=== PATIENT | female | born 1980 | race Caucasian/White ===

== ENCOUNTER 2023-01-03 13:20 | Emergency (ER) | payer BC, SELFPAY ==
[2023-01-03] VITALS (14 sets, daily range): BP systolic 146–164; BP diastolic 98–112; PULSE 65–94; RESP 11–22; TEMP 36.7; O2SAT 97–100; BMI 26.5
--- NOTE | 2023-01-03 14:13 | CT_ITS ---
The [address] [address] Patient Name: TAAMRA CARRASQUILLO MRN: [id number] date: 1980 Sex: F Assigned Patient Location: ER Current Patient Location: ER Accession/Order Number: [id number] Exam Date: 01/03/2023 15:05 Report Date: 01/03/2023 15:29 At the request of: PIETRO KAPLAN Procedure: CT head/brain wo con EXAMINATION: CT head/brain wo con HISTORY: Headache , hypertension COMPARISON: No relevant comparison available. TECHNIQUE: Axial CT images were obtained without IV contrast. Dose reduction techniques were achieved by using automated exposure control and/or adjustment of mA and/or kV according to patient size and/or use of iterative reconstruction technique. FINDINGS: BRAIN: No edema, hemorrhage, mass, acute infarction, or inappropriate atrophy. CSF SPACES: No hydrocephalus, subarachnoid hemorrhage, or mass. Appropriate for age. SKULL: No fracture, mass, or other significant visible lesion. SINUSES: No significant mucosal thickening or fluid on the limited views. ORBITS: No appreciable abnormality on the limited views. OTHER: Negative CT/CT head/brain wo con IMPRESSION: 1. Normal CT appearance of the brain. Electronically authenticated by: MILLER SOLORZANO Date: 01/03/2023 15:29
--- NOTE | 2023-01-03 14:13 | ECG_ITS ---
The [facility] Test Date: 2023-01-03 Pat Name: TAMARA CARRASQUILLO Department: Room: - Gender: Female [employer]inter: : 1980 Requested By: WIL YOST Order Number: [id number] Reading MD: AMERICA ALEXANDRE Measurements Intervals [place] Rate: 73 P: 33 [place]: 146 QRS: 81 QRSD: 90 T: 22 QT: 376 QTc: 401 Interpretive Statements 1100 Sinus rhythm 9110 normal ECG No previous ECG available for comparison Electronically Signed On 01-04-2023 5:19:49 EDT by AMERICA ALEXANDRE
--- NOTE | 2023-01-03 14:20 | ED_ITS ---
Documented by User: EMANUEL Callejas 01/03/23 15:48 HPI - General Adult General Chief complaint: Headache Stated complaint: HIGH BLOOD PRESSURE/R HAND TINGLING Time Seen by Provider: 01/03/23 13:42 Source: patient Mode of arrival: walk-in Limitations: no limitations History of Present Illness HPI narrative: patient is a 42-year-old female who presents to the emergency department for the evaluation of elevated blood pressure, medication refill, headache and right hand tingling. Patient states she has been out of her blood pressure medication and went to the [facility] emergency department over the weekend because she has been having headache, right hand tingling for the last week. She states they did not do any testing but increased her dose of lisinopril and sent her home. She presents to the Emergency Room today because she is concerned something else may be wrong and they did not do any testing. She has been on lisinopril for approximately one year. She states she has a global headache, no visual changes or chest pain. She denies any injury to the neck or back. She has no pain to the neck or back. She does not have an appointment with her PCP for another week so she came to the emergency department. She denies a possibility of . Related Data Home Medications Medication Instructions Recorded Confirmed lisinopril 5 mg tablet 5 mg PO DAILY 01/03/23 01/03/23 Allergies Allergy/AdvReac Type Severity Reaction Status Date / Time nitrofurantoin Allergy Severe Verified 01/03/23 13:28 [From Macrobid] sulfamethoxazole Allergy Severe throat Verified 01/03/23 13:28 [From Bactrim] swelling trimethoprim [From Bactrim] Allergy Severe throat Verified 01/03/23 13:28 swelling Review of Systems ROS Constitutional Denies: fever or chills Ears, nose, mouth, and throat Denies: throat pain Cardiovascular Denies: chest pain Respiratory Denies: shortness of breath Gastrointestinal Denies: nausea or vomiting Musculoskeletal Denies: back pain or neck pain Integumentary/Breast Denies: rash Neurological Reports: headache and numbness in extremities Hematologic/Lymphatic Denies: easy bruising Allergic/Immunologic Denies: hives PFSH PFSH Social History Smoking status: Heavy tobacco smoker Exam Narrative Exam Narrative: Gen.: Awake, alert, in no distress Head: Normocephalic, atraumatic ENT: Moist mucous membranes, no nuchal rigidity Respiratory: No respiratory distress, lungs clear bilaterally Cardio: Regular rate and rhythm Gastrointestinal: Abdomen is soft, nondistended and nontender to palpation Extremities: Moves extremities equally, no injuries noted Psych: Normal mood and affect Neuro: No focal neuro deficit Skin: Warm, dry, intact Constitutional Vital Signs, click to edit/add: Last Vital Signs Temp 98.1 F 01/03/23 13:28 Pulse 66 01/03/23 15:40 Resp 15 01/03/23 15:40 BP 155/104 H 01/03/23 15:31 Pulse Ox 99 01/03/23 15:40 O2 Del Method Room Air 01/03/23 13:28 Course Vital Signs Vital signs: Vital Signs Temperature 98.1 F 01/03/23 13:28 Pulse Rate 94 H 01/03/23 13:28 Respiratory Rate 16 01/03/23 13:28 Blood Pressure 158/98 H 01/03/23 13:28 Pulse Oximetry 98 01/03/23 13:28 Oxygen Delivery Method Room Air 01/03/23 13:28 Temperature 98.1 F 01/03/23 13:28 Pulse Rate 66 01/03/23 15:40 Respiratory Rate 15 01/03/23 15:40 Blood Pressure 155/104 H 01/03/23 15:31 Pulse Oximetry 99 01/03/23 15:40 Oxygen Delivery Method Room Air 01/03/23 13:28 Medical Decision Making MDM Narrative Medical decision making narrative: patient was treated with Toradol and Decadron for headache, CT of the brain, lab studies within normal limits and she is discharged home to continue her blood pressure medication. Follow-up with PCP as an outpatient. Blood pressure is controlled in the emergency department. She has no focal neuro deficit in the Emergency Room. She appears well-hydrated and nontoxic, return to the Emergency Room if symptoms change or worsen. Medical Records Medical records reviewed: Yes I reviewed the patient's medical records Lab Data Lab results reviewed: Yes I reviewed the patient's lab results Labs: Lab Results 01/03/23 Range/Units 14:33 WBC 9.1 (4.0-11.0) 10^3/uL RBC 4.94 (4.20-5.40) 10^6/uL Hgb 15.1 (12.0-16.0) g/dL Hct 44.8 (36.0-48.0) % MCV 90.7 (81.0-99.0) fL MCH 30.6 (26.7-34.0) pg MCHC 33.7 (29.9-35.2) g/dL RDW 13.4 (11.0-15.0) % Plt Count 212 (150-450) 10^3/uL MPV 10.7 (9.5-13.5) fL Neut % (Auto) 62.6 (43.0-75.0) % Lymph % (Auto) 25.7 (20.5-60.0) % [place] % (Auto) 5.5 (1.7-12.0) % Eos % (Auto) 5.5 (0.9-7.0) % Baso % (Auto) 0.4 (0.2-2.0) % Neut # (Auto) 5.7 (1.4-6.5) 10^3/uL Lymph # (Auto) 2.3 (1.2-3.8) 10^3/uL [place] # (Auto) 0.5 (0.3-0.8) 10^3/uL Eos # (Auto) 0.5 (0.0-0.7) 10^3/uL Baso # (Auto) 0.0 (0.0-0.1) 10^3/uL Abs Immat Gran (auto) 0.03 (0.00-0.03) 10^3/uL Imm/Tot Granulo (auto) 0.3 (0.0-0.5) % PT 10.2 (9.0-11.6) sec INR 0.96 Sodium 138 (136-145) mmol/L Potassium 3.5 (3.5-5.1) mmol/L Chloride 104 (98-107) mmol/L Carbon Dioxide 29.7 (21.0-32.0) mmol/L Anion Gap 7.8 BUN 8.0 (7.0-18.0) mg/dL Creatinine 0.89 (0.55-1.02) mg/dL Est GFR ( Amer) >60 (>=60) Est GFR (Non-Af Amer) >60 (>=60) BUN/Creatinine Ratio 9.0 Glucose 108 H (74-106) mg/dL Calcium 8.8 (8.5-10.1) mg/dL Total Bilirubin 0.6 (0.2-1.0) mg/dL AST 18 (15-37) U/L ALT 26 (14-59) U/L Alkaline Phosphatase 62 (46-116) U/L Troponin I High Sens 4.4 (4.0-51.3) pg/mL Total Protein 7.1 (6.4-8.2) g/dL Albumin 3.8 (3.4-5.0) g/dL Globulin 3.3 g/dL Albumin/Globulin Ratio 1.2 TSH 1.857 (0.358-3.740) uIU/mL Imaging Data CT scan - head: Attestation: I have reviewed the pertinent imaging results. Radiologist's impression: Procedure: CT head/brain wo con EXAMINATION: CT head/brain wo con HISTORY: Headache , hypertension COMPARISON: No relevant comparison available. TECHNIQUE: Axial CT images were obtained without IV contrast. Dose reduction techniques were achieved by using automated exposure control and/or adjustment of mA and/or kV according to patient size and/or use of iterative reconstruction technique. FINDINGS: BRAIN: No edema, hemorrhage, mass, acute infarction, or inappropriate atrophy. CSF SPACES: No hydrocephalus, subarachnoid hemorrhage, or mass. Appropriate for age. SKULL: No fracture, mass, or other significant visible lesion. SINUSES: No significant mucosal thickening or fluid on the limited views. ORBITS: No appreciable abnormality on the limited views. OTHER: Negative IMPRESSION: 1. Normal CT appearance of the brain. Electronically authenticated by: MILLER SOLORZANO Date: 01/03/2023 15:29 ECG Data Attestation: I personally reviewed and interpreted this ECG as follows: (normal sinus rhythm at a rate of seventy-three, no acute ST elevation or ectopy. EKG reviewed by attending physician) Discharge Plan Discharge Chief Complaint: Headache Clinical Impression: Headache, Hypertension Patient Disposition: Home, Self-Care Time of Disposition Decision: 15:47 Condition: Good Prescriptions / Home Meds: No Action lisinopril 5 mg tablet 5 mg PO DAILY Instructions: Acute Headache (ED), Hypertension (ED) Stand Alone Forms: Portal Instructions Referrals: WIL YOST [Primary Care Provider] - 1 week Discharge Date/Time: 01/03/23 16:05 Documented by User: Robby Juarez MD 01/03/23 16:13 HPI - General Adult General Chief complaint: Headache Stated complaint: HIGH BLOOD PRESSURE/R HAND TINGLING Time Seen by Provider: 01/03/23 13:42 Related Data Home Medications Medication Instructions Recorded Confirmed lisinopril 5 mg tablet 5 mg PO DAILY 01/03/23 01/03/23 Allergies Allergy/AdvReac Type Severity Reaction Status Date / Time nitrofurantoin Allergy Severe Verified 01/03/23 13:28 [From Macrobid] sulfamethoxazole Allergy Severe throat Verified 01/03/23 13:28 [From Bactrim] swelling trimethoprim [From Bactrim] Allergy Severe throat Verified 01/03/23 13:28 swelling PFSH PFSH Social History Smoking status: Heavy tobacco smoker Exam Constitutional Vital Signs, click to edit/add: Last Vital Signs Temp 98.1 F 01/03/23 13:28 Pulse 66 01/03/23 15:40 Resp 15 01/03/23 15:40 BP 155/104 H 01/03/23 15:31 Pulse Ox 99 01/03/23 15:40 O2 Del Method Room Air 01/03/23 13:28 Course Vital Signs Vital signs: Vital Signs Temperature 98.1 F 01/03/23 13:28 Pulse Rate 94 H 01/03/23 13:28 Respiratory Rate 16 01/03/23 13:28 Blood Pressure 158/98 H 01/03/23 13:28 Pulse Oximetry 98 01/03/23 13:28 Oxygen Delivery Method Room Air 01/03/23 13:28 Temperature 98.1 F 01/03/23 13:28 Pulse Rate 66 01/03/23 15:40 Respiratory Rate 15 01/03/23 15:40 Blood Pressure 155/104 H 01/03/23 15:31 Pulse Oximetry 99 01/03/23 15:40 Oxygen Delivery Method Room Air 01/03/23 13:28 Medical Decision Making MDM Narrative Medical decision making narrative: patient was treated with Toradol and Decadron for headache, CT of the brain, lab studies within normal limits and she is discharged home to continue her blood pressure medication. Follow-up with PCP as an outpatient. Blood pressure is controlled in the emergency department. She has no focal neuro deficit in the Emergency Room. She appears well-hydrated and nontoxic, return to the Emergency Room if symptoms change or worsen. I, Dr Juarez, have reviewed the above progress note and course of action in the ER; agree with the above. I have personally seen and evaluated this patient, gone over history and physical, and discussed disposition and treatment plan with the patient. Lab Data Labs: Lab Results 01/03/23 Range/Units 14:33 WBC 9.1 (4.0-11.0) 10^3/uL RBC 4.94 (4.20-5.40) 10^6/uL Hgb 15.1 (12.0-16.0) g/dL Hct 44.8 (36.0-48.0) % MCV 90.7 (81.0-99.0) fL MCH 30.6 (26.7-34.0) pg MCHC 33.7 (29.9-35.2) g/dL RDW 13.4 (11.0-15.0) % Plt Count 212 (150-450) 10^3/uL MPV 10.7 (9.5-13.5) fL Neut % (Auto) 62.6 (43.0-75.0) % Lymph % (Auto) 25.7 (20.5-60.0) % [place] % (Auto) 5.5 (1.7-12.0) % Eos % (Auto) 5.5 (0.9-7.0) % Baso % (Auto) 0.4 (0.2-2.0) % Neut # (Auto) 5.7 (1.4-6.5) 10^3/uL Lymph # (Auto) 2.3 (1.2-3.8) 10^3/uL [place] # (Auto) 0.5 (0.3-0.8) 10^3/uL Eos # (Auto) 0.5 (0.0-0.7) 10^3/uL Baso # (Auto) 0.0 (0.0-0.1) 10^3/uL Abs Immat Gran (auto) 0.03 (0.00-0.03) 10^3/uL Imm/Tot Granulo (auto) 0.3 (0.0-0.5) % PT 10.2 (9.0-11.6) sec INR 0.96 Sodium 138 (136-145) mmol/L Potassium 3.5 (3.5-5.1) mmol/L Chloride 104 (98-107) mmol/L Carbon Dioxide 29.7 (21.0-32.0) mmol/L Anion Gap 7.8 BUN 8.0 (7.0-18.0) mg/dL Creatinine 0.89 (0.55-1.02) mg/dL Est GFR ( Amer) >60 (>=60) Est GFR (Non-Af Amer) >60 (>=60) BUN/Creatinine Ratio 9.0 Glucose 108 H (74-106) mg/dL Calcium 8.8 (8.5-10.1) mg/dL Total Bilirubin 0.6 (0.2-1.0) mg/dL AST 18 (15-37) U/L ALT 26 (14-59) U/L Alkaline Phosphatase 62 (46-116) U/L Troponin I High Sens 4.4 (4.0-51.3) pg/mL Total Protein 7.1 (6.4-8.2) g/dL Albumin 3.8 (3.4-5.0) g/dL Globulin 3.3 g/dL Albumin/Globulin Ratio 1.2 TSH 1.857 (0.358-3.740) uIU/mL ECG Data Attestation: I personally reviewed and interpreted this ECG as follows: (normal sinus rhythm at a rate of seventy-three, no acute ST elevation or ectopy. EKG reviewed by attending physician. QTC of 401) Discharge Plan Discharge Chief Complaint: Headache Clinical Impression: Headache, Hypertension Patient Disposition: Home, Self-Care Time of Disposition Decision: 15:47 Condition: Good Prescriptions / Home Meds: No Action lisinopril 5 mg tablet 5 mg PO DAILY Instructions: Acute Headache (ED), Hypertension (ED) Stand Alone Forms: Portal Instructions Referrals: WIL YOST [Primary Care Provider] - 1 week Discharge Date/Time: 01/03/23 16:05
[2023-01-03 14:52] LABS: Basophils Percent Auto 0.4 % (0.2-2.0); Eosinophils Absolute Auto 0.5 10^3/uL (0.0-0.7); Eosinophils Percent Auto 5.5 % (0.9-7.0); Hematocrit 44.8 % (36.0-48.0); Hemoglobin 15.1 g/dL (12.0-16.0); Immature Granulocytes Abs Auto 0.03 10^3/uL (0.00-0.03); Immature Granulocytes Pct Auto 0.3 % (0.0-0.5); Lymphocytes Absolute Auto 2.3 10^3/uL (1.2-3.8); Lymphocytes Percent Auto 25.7 % (20.5-60.0); Mean Corpuscular HGB Conc 33.7 g/dL (29.9-35.2); Mean Corpuscular Hemoglobin 30.6 pg (26.7-34.0); Mean Corpuscular Volume 90.7 fL (81.0-99.0); Mean Platelet Volume 10.7 fL (9.5-13.5); Monocytes Absolute Auto 0.5 10^3/uL (0.3-0.8); Monocytes Percent Auto 5.5 % (1.7-12.0); Neutrophils Absolute Auto 5.7 10^3/uL (1.4-6.5); Neutrophils Percent Auto 62.6 % (43.0-75.0); Platelet Count 212 10^3/uL (150-450); Red Blood Count 4.94 10^6/uL (4.20-5.40); Red Cell Distribution Width 13.4 % (11.0-15.0); White Blood Count 9.1 10^3/uL (4.0-11.0)
[2023-01-03] MEDS: 0.9 % SODIUM CHLORIDE 1,000 ML 999 ML IV (14:54)
[2023-01-03] MEDS: DEXAMETHASONE SODIUM PHOSPHATE 10 MG/ML VIAL IV (14:55)
[2023-01-03] MEDS: KETOROLAC TROMETHAMINE 30 MG/ML VIAL IVP (14:55)
[2023-01-03 15:03] LABS: Alanine Aminotransferase 26 U/L (14-59); Albumin Globulin Ratio 1.2; Albumin Level 3.8 g/dL (3.4-5.0); Alkaline Phosphatase 62 U/L (46-116); Anion Gap 7.8; Aspartate Amino Transferase 18 U/L (15-37); Bilirubin Total 0.6 mg/dL (0.2-1.0); Calcium 8.8 mg/dL (8.5-10.1); Carbon Dioxide 29.7 mmol/L (21.0-32.0); Chloride 104 mmol/L (98-107); Estimated GFR (African America >60 (>=60); Estimated GFR (Non-African Ame >60 (>=60); Globulin 3.3 g/dL; Glucose 108 mg/dL (74-106); Potassium 3.5 mmol/L (3.5-5.1); Sodium 138 mmol/L (136-145); Total Protein 7.1 g/dL (6.4-8.2)
[2023-01-03 15:05] LABS: INR 0.96; Prothrombin Time 10.2 sec (9.0-11.6)
[2023-01-03 15:11] LABS: Thyroid Stimulating Hormone 1.857 uIU/mL (0.358-3.740); Troponin I High Sensitivity 4.4 pg/mL (4.0-51.3)
== END 2023-01-03 16:05 | disposition home or self-care (01) ==
PROVIDERS: Physician Assistant; Emergency Provider Emergency Medicine; PCP Nurse Practitioner Family
DX: I10 Essential (primary) hypertension (principal); R51.9 Headache, unspecified; Z79.899 Other long term (current) drug therapy; F17.210 Nicotine dependence, cigarettes, uncomplicated
CPT/HCPCS: 36415; 70450; 80053; 84443; 84484; 85025; 85610; 93005; 96374; 96375; 99285; J1100

== ENCOUNTER 2023-01-13 10:47 | Outpatient (OUT) | payer BC, SELFPAY ==
[2023-01-13 11:31] LABS: Bilirubin Urine NEGATIVE (NEGATIVE); Blood Urine SMALL (NEGATIVE); Clarity Urine CLEAR (CLEAR); Color Urine YELLOW (YELLOW); Glucose Urine UA NEGATIVE (NEGATIVE); Ketones Urine NEGATIVE (NEGATIVE); Leukocyte Esterase Urine SMALL (NEGATIVE); Nitrite Urine NEGATIVE (NEGATIVE); Protein Urine NEGATIVE (NEG/TRACE); Specific Gravity Urine 1.025 (1.005-1.025); Urobilinogen Urine 0.2 EU/dL (0.2-1.0); pH Urine 5.5 (5.0-9.0)
== END 2023-01-13 10:48 | disposition home or self-care (01) ==
LOC: LAB 10:50
PROVIDERS: PCP Nurse Practitioner Family; Visit Provider Nurse Practitioner Family
DX: R35.0 Frequency of micturition (principal)
CPT/HCPCS: 81003; 87086

== ENCOUNTER 2023-04-15 20:39 | Emergency (ER) | payer BC, SELFPAY ==
[2023-04-15 20:41] VITALS: BP 162/88; PULSE 95; RESP 18; TEMP 36.8; O2SAT 97; BMI 26.8
--- NOTE | 2023-04-15 20:46 | XR_ITS ---
The [address] [address] Patient Name: TAMARA CARRASQUILLO MRN: [id number] date: 1980 Sex: F Assigned Patient Location: ER Current Patient Location: ED.MAIN Accession/Order Number: [id number] Exam Date: 04/15/2023 20:52 Report Date: 04/15/2023 21:17 At the request of: KEREN MARLOW Procedure: XR foot LT min 3V EXAM: XR foot LT min 3V HISTORY: pain 5th MT and distal MT diffuse COMPARISON: None. TECHNIQUE: 3 views left foot FINDINGS: No acute fracture or aggressive osseous abnormality. Joint spaces and alignment are preserved. XR/XR foot LT min 3V IMPRESSION: No acute osseous abnormality of the left foot. Electronically authenticated by: LEONCIO RODRÍGUEZ Date: 04/15/2023 21:17
--- NOTE | 2023-04-15 20:47 | ED.LOWEXI1 ---
HPI - Extremity Injury (Lower) General Chief Complaint: Extremity Injury, Lower Stated Complaint: Lower Extremity Injury Time Seen by Provider: 04/15/23 20:41 Source: patient Mode of arrival: walk-in History of Present Illness HPI Narrative: patient is a 42-year-old female presents to the Emergency Room with concerns of left foot pain. Patient notes pain to the distal foot at the 2nd and 3rd and 1st MCP joints. He also has pain to the 5th metatarsal base. Patient states she was walking down steps this morning and tripped twisting her foot, has had pain ever since. Patient has a history of hypertension. States she did take her medications this morning. She denies any head or neck injury, denies loss of consciousness. States she did have some lower back pain earlier in the day which is now resolved. Patient appears in no distress. She did not take any medication for pain prior to arrival. Patient is full weight bearing in slip-on shoe on arrival. MD complaint: Reports foot injury Injury: Left: foot Type of Injury: Reports inversion and hyperflexion; Denies blunt Place: Reports home Severity: moderate Relieving factors: Reports nothing Exacerbating factors: Reports weight bearing Other symptoms: Reports none Related Data Home Medications Medication Instructions Recorded Confirmed lisinopril 5 mg tablet 10 mg PO DAILY 01/03/23 04/15/23 Allergies Allergy/AdvReac Type Severity Reaction Status Date / Time nitrofurantoin Allergy Severe Verified 01/03/23 13:28 [From Macrobid] sulfamethoxazole Allergy Severe throat Verified 01/03/23 13:28 [From Bactrim] swelling trimethoprim [From Bactrim] Allergy Severe throat Verified 01/03/23 13:28 swelling Review of Systems ROS Constitutional Denies: fever or chills Eyes Denies: change in vision Ears, nose, mouth, and throat Denies: throat pain, neck pain or throat swelling Cardiovascular Denies: chest pain or palpitations Respiratory Denies: shortness of breath, cough or wheezing Gastrointestinal Denies: abdominal pain or nausea Musculoskeletal Reports: extremity pain (left foot); Denies: back pain or neck pain Integumentary/Breast Denies: rash, itching or redness Neurological Denies: headache Psychiatric Denies: anxiety Hematologic/Lymphatic Denies: easy bruising Allergic/Immunologic Denies: hives PFSH PFSH Social History Smoking status: Heavy tobacco smoker Exam Narrative Exam Narrative: Vital signs reviewed and nurse's notes. The patient is not hypoxic. General: Alert, no acute distress, patient resting comfortably Skin: warm, intact, no pallor noted, no skin injury or disruption Head: Normocephalic, atraumatic Eye: Normal conjunctiva, no exudates Respiratory: No acute distress, lungs CTA Musculoskeletal: No evidence of deformity to the left foot deformity. There is minimal amount of swelling. There is no ecchymosis. No erythema or warmth noted. DP and PT pulses are intact 2+. Normal sensation, normal capillary refill less than 2 seconds. There is no cyanosis or mottling noted. The patient has tenderness to left foot along 5th MT base and diffuse across MT necks. The patient has no laxity with varus or valgus stressing. The patient has negative anterior drawer. The patient was able to flex and extend all digits despite pain. Patient was able to extend leg off the cart without difficulty. No tenderness noted to the midfoot, ankle or proximal fibular area. There is no pain with calcaneal squeeze, achilles tendon is intact and no defect is palpated. The patient has no pelvic instability. The patient has no shortening or rotation noted to the bilateral lower extremities. Neurological: alert and orient x4, normal sensory and motor observed. Psychiatric: Cooperative MDM - Extremity Injury (Lower) MDM Narrative Medical decision making narrative: patient presents for evaluation of left foot pain that occurred status post fall, given Tylenol for pain, ice pack applied. x-ray performed to rule out fracture. three-view x-ray left foot personally reviewed, no evidence of fracture, normal alignment. Recommend use of postop shoe, applied, neurovascular intact status post application. Good alignment. Patient may require crutches to offload the foot if it becomes more painful. Discussed strict ice and elevation, no off work tomorrow if needed and follow-up to podiatry for ongoing management The patient is to followup with primary care physician/ podiatry in next 2-3 days or to return to the emergency department should any of the signs or symptoms worsen or new symptoms develop. Patient had questions answered. The patient agrees with the following Diagnosis and Treatment plan and the patient will be discharged home. Discharge Plan Discharge Chief Complaint: Extremity Injury, Lower Clinical Impression: Contusion of foot, left Patient Disposition: Home, Self-Care Time of Disposition Decision: 21:11 Condition: Good Prescriptions / Home Meds: No Action lisinopril 5 mg tablet 10 mg PO DAILY Instructions: Foot Contusion (ED) Additional Instructions: Tylenol arthritis strength [id number], strict ice and elevation. Use note for off work tomorrow if needed. Stand Alone Forms: Portal Instructions Referrals: WIL YOST [Primary Care Provider] - 1 week Kasi Darling DPM [Physician] - 1 week Discharge Date/Time: 04/15/23 21:21
[2023-04-15] MEDS: ACETAMINOPHEN 500 MG TABLET 1000 MG PO (20:57)
== END 2023-04-15 21:21 | disposition home or self-care (01) ==
PROVIDERS: Emergency Provider Internal Medicine; PCP Nurse Practitioner Family
DX: S90.32XA Contusion of left foot, initial encounter (principal); I10 Essential (primary) hypertension; Z79.899 Other long term (current) drug therapy; F17.210 Nicotine dependence, cigarettes, uncomplicated; W10.9XXA Fall (on) (from) unspecified stairs and steps, initial encounter
CPT/HCPCS: 73630; 99283